=== PATIENT | female | born 1970 | race Hispanic/Latino ===

== ENCOUNTER 2022-01-10 22:37 | Emergency (ER) | payer OTHER ==
[~2022-01-10] VITALS: Ht 165.1 cm; Wt 102.1 kg
[~2022-01-10 22:37] MED LIST: INSULIN HUMULIN R 100 UNIT/ML 3ML SQ ONE
[2022-01-10 23:09] LABS: BASOPHILS % (AUTO) 0.7 % (0.0-5.0); EOSINOPHILS % (AUTO) 1.5 % (0.0-8.0); HEMATOCRIT 44.5 % (36-48); LYMPHOCYTES % (AUTO) 27.4 % (21.0-51.0); MEAN CORPUSCULAR HEMOGLOBIN 29.8 pg (27.0-33.0); MEAN CORPUSCULAR HGB CONC 35.1 g/dL (32.0-36.0); MEAN CORPUSCULAR VOLUME 85.1 fL (79-99); MONOCYTES % (AUTO) 5.6 % (3.0-13.0); NEUTROPHILS % (AUTO) 64.4 % (40.0-77.0); PLATELET COUNT (AUTO) 247 K/uL (130-400); RED BLOOD CELL COUNT(AUTO) 5.23 MIL/uL (4.00-5.50); RED CELL DISTRIBUTION WIDTH 11.9 % (11.0-15.5); WHITE BLOOD COUNT (AUTO) 9.3 K/uL (4.8-10.8)
[2022-01-10 23:25] LABS: ALBUMIN 3.5 g/dL (3.5-5.0); BILIRUBIN,TOTAL 0.4 mg/dL (0.2-1.0); CREATININE 0.9 mg/dL (0.5-1.5); POTASSIUM 4.4 mmol/L (3.5-5.1); TOTAL PROTEIN, SERUM 7.5 g/dL (6.0-8.3)
[2022-01-10] MEDS ORDERED: 0.9%NACL 1000ML 1,000 ML IV ONE ×2 (23:30)
[2022-01-11] MEDS ORDERED: INSULIN HUMULIN R 100 UNIT/ML 3ML IV ONE (00:30)
[2022-01-11 00:37] VITALS: BP 131/81
[2022-01-11] MEDS ORDERED: POLY17PO4 PO (00:37)
[2022-01-11] MEDS ORDERED: INSULIN HUMULIN R 100 UNIT/ML 3ML SQ SCH (07:30)
== END 2022-01-11 00:50 | disposition home or self-care (01) ==
LOC: EDH 22:37
DX: K56.41 Fecal impaction (principal); E11.9 Type 2 diabetes mellitus without complications; Z90.89 Acquired absence of other organs; Z98.890 Other specified postprocedural states
CPT/HCPCS: 36415; 80053; 82948 ×2; 85025; 96361; 96374; 99283; J1815; J7030

== ENCOUNTER 2023-04-19 19:17 | Emergency (ER) | payer OTHER ==
[~2023-04-19] VITALS: Ht 160 cm; Wt 94.3 kg
[~2023-04-19 19:17] MED LIST changes: -INSULIN HUMULIN R 100 UNIT/ML 3ML SQ ONE; +POLY17PO4 PO
[2023-04-19] MEDS ORDERED: IBUP-2070 PO (23:12)
[2023-04-19 23:17] VITALS: BP 138/74; PULSE 84; RESP 18; O2SAT 99
[2023-04-19] MEDS ORDERED: HYDROCODONE/ACETAMINOPHEN 5/325 MG TAB PO ONE (23:30)
== END 2023-04-19 23:21 | disposition home or self-care (01) ==
LOC: EDH 19:17
DX: S92.511A Displaced fracture of proximal phalanx of right lesser toe(s), initial encounter for closed fracture (principal); E11.9 Type 2 diabetes mellitus without complications; W22.8XXA Striking against or struck by other objects, initial encounter; Y93.01 Activity, walking, marching and hiking; Y92.89 Other specified places as the place of occurrence of the external cause; Y99.8 Other external cause status
CPT/HCPCS: 73660

== ENCOUNTER 2023-10-23 10:27 | Emergency (ER) | payer OTHER ==
[~2023-10-23] VITALS: Ht 157.5 cm; Wt 99.8 kg
[~2023-10-23 10:27] MED LIST changes: +CEPH500B PO; +CLOT15CR23 TP; +IBUP-2070 PO
[2023-10-23 10:28] VITALS: BP 150/95; PULSE 88; RESP 18
[2023-10-23 12:06] LABS: CREATININE 0.6 mg/dL (0.5-1.0); POTASSIUM 3.8 mmol/L (3.5-5.1)
[2023-10-23] MEDS ORDERED: IOHEXOL-350 75 ML VIAL IV ONE (12:20)
[2023-10-23] MEDS: LACTATED RINGERS 1000ML 1,000 ML IV ONE (12:55)
[2023-10-23] MEDS: ONDANSETRON 4MG INJ IVP ONE (12:55)
[2023-10-23] MEDS: METOCLOPRAMIDE 10 MG/2 ML VIAL IVP ONE (14:18)
[2023-10-23] MEDS: MECLIZINE HCL 25 MG TABLET PO ONE (14:47)
[2023-10-23 14:57] LABS: ADD UA MICROSCOPIC YES; APPEARANCE,URINE CLEAR (CLEAR); BILIRUBIN,URINE NEGATIVE (NEGATIVE); COLOR,URINE COLORLESS (YELLOW); GLUCOSE, URINE (UA) TRACE mg/dL (NEGATIVE); KETONES,URINE NEGATIVE (NEGATIVE); LEUKOCYTE ESTERASE ,URINE 25 Leu/uL (NEGATIVE); NITRATE,URINE NEGATIVE (NEGATIVE); OCCULT BLOOD,URINE NEGATIVE (NEGATIVE); PH,URINE 7.5 (5.0-8.0); PROTEIN,URINE NEGATIVE (NEGATIVE); UROBILINOGEN,URINE 0.2 mg/dL (0.2-1.0)
[2023-10-23 15:08] LABS: SQUAMOUS EPITHELIAL CELL,UR RARE /HPF (0-2); YEAST,URINE BUDDING RARE /HPF (None Seen)
[2023-10-23] MEDS ORDERED: METO5 PO (15:41)
== END 2023-10-23 15:55 | disposition home or self-care (01) ==
LOC: EDH 10:27
DX: R11.10 Vomiting, unspecified (principal); L03.311 Cellulitis of abdominal wall; R42 Dizziness and giddiness; E11.9 Type 2 diabetes mellitus without complications; Z90.49 Acquired absence of other specified parts of digestive tract; Z90.710 Acquired absence of both cervix and uterus
CPT/HCPCS: 99285; 80048; 80053; 85025; 82948; 83605 ×2; 82010; 81001; 36415 ×2; 70450; 74177; 96374 ×2; 99283; 96361 ×2; 96375; J7120; J7030; J0696; J2405; J2765; Q9967

== ENCOUNTER 2024-07-02 16:52 | Emergency (ER) | payer BC, OTHER ==
[~2024-07-02] VITALS: Ht 157.5 cm; Wt 87.1 kg
[~2024-07-02 16:52] MED LIST changes: +METO5 PO; +NAPR-1023 PO
--- NOTE | 2024-07-02 16:57 | ERN ---
ED Note History of Present Illness Stated Complaint: CP Chief Complaint: Chest Pain Time Seen by MD: 16:53 Dictation: PATIENT IS A 54-YEAR-OLD FEMALE HERE WITH COMPLAINTS OF LEFT ANTERIOR CHEST PAIN AND LEFT ARM PAIN ONSET WAS YESTERDAY. NO FEVER NO CHILLS NO NAUSEA VOMITING. STATES SHE DOES NOT HAVE A HISTORY OF CAD OR STENTS OR AIRPLANE PATROL PILOT. STATES SHE DOES HAVE HISTORY OF DIABETES HYPERTENSION, DOES NOT CHECK HER BLOOD SUGAR. WENT AND SAW HER PRIMARY CARE DOCTOR TODAY WHO WITHOUT ANY BENEFIT OF LABS OR X- RAYS, REFERRED HER TO THE EMERGENCY ROOM. SHE STATES THE PAIN COMES AND GOES, NO PRESSURE Allergies: Coded Allergies: No Known Drug Allergies (Unverified Allergy, Unknown, 01/10/22) Home Meds Active Scripts Ibuprofen (Ibuprofen 800 mg Tab) 800 Mg Tab, 800 MG PO Q8H PRN for fever or pain, #30 TAB 0 Refills Prov:AYANA GARCIA NP 07/02/24 Naproxen (Naproxen) 500 Mg Tablet, 500 MG PO BID PRN for PAIN, #30 TAB Prov:JAIRO HOFF 12/22/23 Metoclopramide HCl (Reglan) 5 Mg Tab, 5 MG PO Q6HPRN PRN for NAUSEA/VOMITING, #8 TAB Prov:SAUNDRA COTE MD 10/23/23 Clotrimazole (Clotrimazole) 1 % Cream..g., 1 IN TP BID for 7 Days, #15 G 0 Refills Prov:JERZY CASTRO MD 10/23/23 Cephalexin Monohydrate (Keflex) 500 Mg Cap, 500 MG PO TID, #30 CAP 0 Refills Prov:JERZY CASTRO MD 10/23/23 Ibuprofen (Ibuprofen) 600 Mg Tablet, 600 MG PO Q6H PRN for PAIN, #20 TAB 0 Refills Prov:TAMIKO PUENTES 04/19/23 Polyethylene Glycol 3350 (Miralax) 17 Gm Powd.pack, 17 GM PO DAILY, #30 DAYS Prov:BINDU BANDA MD 01/11/22 Past Medical History Past Medical History: Diabetes-Type II, Hypothyroid Surgical History: Appendectomy, Hysterectomy Social History: Negative, Lives with family History: Not Applicable RN Note Reviewed/Agreed w/PFSH: Yes Review of System Dictation CONSTITUTIONAL: NEGATIVE EXCEPT FOR HPI HEAD/FACE: NEGATIVE EXCEPT FOR HPI EENT: NEGATIVE EXCEPT FOR HPI RESPIRATORY: NEGATIVE EXCEPT FOR HPI LEFT CHEST PAIN GASTROINTESTINAL/ABDOMINAL: NEGATIVE EXCEPT FOR HPI GENITOURINARY: NEGATIVE EXCEPT FOR HPI MUSCULOSKELETAL: NEGATIVE EXCEPT FOR HPI INTEGUMENTARY: NEGATIVE EXCEPT FOR HPI NEUROLOGICAL/PSYCH: NEGATIVE EXCEPT FOR HPI HEMATOLOGIC/LYMPHATIC: NEGATIVE EXCEPT FOR HPI ALL SYSTEMS NEGATIVE, EXCEPT NOTED ABOVE. 13 POINT REVIEW OF SYSTEMS ASSESSED AND ALL NEGATIVE EXCEPT FOR ABOVE. Initial Vital Sign VS Vital Signs Date Time Temp Pulse Resp B/P (MAP) Pulse Ox O2 Delivery O2 Flow Rate FiO2 07/02/24 16:53 98.4 83 16 130/76 99 Room Air 0 07/02/24 21:25 21 Physical Exam Dictation VITAL SIGNS REVIEWED GENERAL APPEARANCE: ALERT, ORIENTED X 3, NO ACUTE DISTRESS, WELL DEVELOPED, NOURISHED. OBESE HEAD AND FACE: NON-TRAUMATIC. EYES: PERRL, PINK CONJUNCTIVAS, EYELID NO TRAUMA, ANTERIOR CHAMBER WITH ARCUS SENILIS. EARS: PINNAS INTACT AND NO SIGNS OF TRAUMA OR ERYTHEMA EAR CANALS CLEAR AND NO DISCHARGE TM NO ERYTHEMA NOSE: NO DISCHARGE, NO BLEEDING. OROPHARYNX: MOUTH NORMAL, TONGUE PINK, PHARYNX CLEAR,NO ERYTHEMA, TONSILS NO EXUDATES, NO ABSCESSES NOTED, MUCOUS MEMBRANE MOIST NECK: SUPPLE, NON-TENDER, NO THYROMEGALY, NO MASSES, NO JVD, NO BRUITS BREAST:DEFERRED CHEST:NO TENDERNESS, NO CREPITUS, NO PARADOXICAL MOVEMENT, NO RETRACTIONS LUNGS:CLEAR, WELL-VENTILATED, SYMMETRIC, NO RALES, NO WHEEZING, NO RHONCHI, NO STRIDOR, GOOD BREATH SOUNDS BILATERALLY HEART: REGULAR RATE, REGULAR RHYTHM, NO MURMUR, NO GALLOPS VASCULAR: NO PERIPHERAL EDEMA, ABDOMEN: SOFT, POSITIVE BOWEL SOUNDS, NONDISTENDED, NO GUARDING, NONTENDER, NO REBOUND, NO MASSES NO HEPATOMEGALY, NO SPLENOMEGALY, NO ALVAREZ'S SIGN, NO HERNIAS. RECTAL: DEFERRED GENITAL: DEFERRED NEUROLOGICAL: NORMAL SPEECH, MOTOR FUNCTION INTACT, SENSORY FUNCTION INTACT MUSCULOSKELETAL: NECK NONTENDER, FULL RANGE OF MOTION, BACK NONTENDER, FULL RANGE OF MOTION, EXTREMITIES: NONTENDER, FULL RANGE OF MOTION SKIN: COLOR PINK, DRY, NO TURGOR, NO RASH, NO LACERATIONS, NO ABRASIONS, NO CONTUSIONS. LYMPHATIC: DEFERRED Results (Laboratory/Radiology) Laboratory/Radiology Laboratory Tests Test 07/02/24 17:51 White Blood Count 8.6 K/uL (4.8-10.8) Red Blood Count 5.36 MIL/uL (4.00-5.50) Hemoglobin 16.0 g/dL (12.0-16.0) Hematocrit 46.6 % (36-48) Mean Corpuscular Volume 86.9 fL (79-99) Mean Corpuscular Hemoglobin 29.9 pg (27.0-33.0) Mean Corpuscular Hemoglobin Concent 34.3 g/dL (32.0-36.0) Red Cell Distribution Width 12.6 % (11.0-15.5) Platelet Count 248 K/uL (130-400) Mean Platelet Volume 11.3 fL (7.5-10.5) H Immature Granulocyte % (Auto) 0.5 % (0-1) Neutrophils (%) (Auto) 60.9 % (40.0-77.0) Lymphocytes (%) (Auto) 28.3 % (21.0-51.0) Monocytes (%) (Auto) 7.2 % (3.0-13.0) Eosinophils (%) (Auto) 2.3 % (0.0-8.0) Basophils (%) (Auto) 0.8 % (0.0-5.0) Neutrophils # (Auto) 5.3 K/uL (1.8-7.7) Lymphocytes # (Auto) 2.4 K/uL (1.0-4.8) Monocytes # (Auto) 0.6 K/uL (0.1-1.0) Eosinophils # (Auto) 0.20 K/uL (0.00-0.70) Basophils # (Auto) 0.07 K/uL (0.00-0.20) Absolute Immature Granulocyte (auto 0.04 K/uL (0-1) Nucleated Red Blood Cells 0.0 % (0.0-0.19) Sodium Level 141 mmol/L (136-145) Potassium Level 3.9 mmol/L (3.5-5.1) Chloride Level 103 mmol/L (101-111) Carbon Dioxide Level 33 mmol/L (21-32) H Blood Urea Nitrogen 11 mg/dL (7-18) Creatinine 0.7 mg/dL (0.5-1.0) Glomerular Filtration Rate Calc 103 mL/min (>90) Random Glucose 202 mg/dL (70-105) H Total Calcium 9.7 mg/dL (8.5-10.1) Magnesium Level 2.00 mg/dL (1.80-2.40) Troponin I High Sensitivity < 4 ng/L (4-50) L HEST 1VW HISTORY: Chest pain COMPARISON: None FINDINGS: A frontal projection of the chest was obtained. No acute pulmonary infiltrates is seen. The heart is normal in size. Prominent interstitial markings are seen. No evidence of aortic calcification is seen. IMPRESSION: 1. No acute pulmonary infiltrate is seen. Labs Reviewed?: Yes EKG Comment: EKG IS SINUS RHYTHM/HEART RATE 8 /NO ECTOPY /NONSPECIFIC T-WAVE CHANGE IN TEAR LATERAL LEADS ED Course ED Course Orders Procedure Category Date Status Time Cbc With Differential LAB 07/02/24 Complete 16:53 Chest 1vw RAD 07/02/24 Resulted 16:53 12 Lead Ekg Tracing- EKG 07/02/24 Resulted Technical 16:53 Magnesium LAB 07/02/24 Complete 16:53 Troponin I High LAB 07/02/24 Complete Sensitivity 16:53 Aspirin 325mg Tab PHA 07/02/24 Complete (Aspirin 325mg Tab) 17:00 Basic Metabolic Panel LAB 07/02/24 Complete 16:53 Aspirin 325mg Tab PHA 07/02/24 Complete (Aspirin 325mg Tab) 21:21 Current Medications Medications (Trade) Dose Ordered Sig/Samuel Route PRN Reason Start Time Stop Time Status Last Admin Dose Admin Aspirin (Aspirin 325mg Tab) 325 mg ONCE ONCE PO 07/02/24 17:00 07/02/24 17:01 DC 07/02/24 17:00 Aspirin (Aspirin 325mg Tab) 325 mg STK-MED ONCE .ROUTE 07/02/24 21:21 07/02/24 21:21 DC Vital Signs Date Time Temp Pulse Resp B/P (MAP) Pulse Ox O2 Delivery O2 Flow Rate FiO2 07/02/24 21:25 98.1 60 18 118/80 98 Room Air* 0 21 07/02/24 16:53 98.4 83 16 130/76 99 Room Air 0 1915, CARDIAC WORKUP NEGATIVE, BLOOD SUGAR 202. PATIENT WILL BE DISCHARGED HOME WITH ATYPICAL CHEST PAIN TOLD TO SEE HER PRIMARY CARE DOCTOR. HEART Score Response (Comments) Value EKG: Repolarization changes 1 Age: 45-65yrs (+1) 1 Risk Factors: 1-2 risk factors (+1) 1 Initial Troponin: Normal limit (0) 0 Total 3 Medical Decision Making MDM MDM: DIFFERENTIAL DIAGNOSIS: ACS/AMI/ELECTROLYTE IMBALANCE/DEHYDRATI ON/PNEUMONIA/BRONCHITIS RATIONALE: TESTS CONSIDERED AND ORDERED SECONDARY TO SHARED DECISION MAKING INCLUDE: EKG/LABS/RADIOLOGY PREVIOUS OUTSIDE RECORDS REVIEWED: OLD ER VISITS. REVIEWED RISK OF COMPLICATION AND/OR MORBIDITY OR MORTALITY OF PATIENT MANAGEMENT: NONE MEDICATIONS-PER MEDICATION RECONCILIATION SEE NURSE'S NOTES NEED FOR HOSPITALIZATION: PATIENT DOES NOT MEET CRITERIA FOR HOSPITALIZATION. NONE NEED FOR EMERGENCY MAJOR/MINOR SURGERY: NO THERE ARE NO SOCIAL CONCERNS WITH THIS PATIENT. PRESCRIPTION DRUG MANAGEMENT IBUPROFEN PRESCRIPTIONS WILL INCLUDE SYMPTOMATIC CARE PATIENT'S PRIOR EXTERNAL MEDICAL RECORDS FROM OTHER ER VISITS WERE REVIEWED BY ME INDICATED. PRIOR TESTING AND RESULTS FROM PREVIOUS VISITS WERE REVIEWED. PRIOR TESTS WERE TAKEN INTO ACCOUNT WITH MEDICAL DECISION MAKING AND RESOURCE UTILIZATION, INDEPENDENT HISTORIAN/HISTORIANS WERE USED TO OBTAIN COMPLETE MEDICAL HISTORY. I INDEPENDENTLY INTERPRETED THE TEST THAT WERE PERFORMED, RESULTS WERE REVIEWED BY ME AND CONSIDERED FINDINGS ON RADIOLOGY IF ORDERED. MEDICAL MANAGEMENT AND EXAMINATION INTERPRETATION DISCUSSIONS WERE HAD BY ME WITH OTHER QUALIFIED HEALTHCARE PROFESSIONALS INDICATED FOR THE PATIENT'S CARE. DX & DISP Disposition: Discharge Departure Impression: Primary Impression: Atypical chest pain Additional Impression: Uncontrolled diabetes mellitus Condition: Stable Scripts Ibuprofen (Ibuprofen 800 mg Tab) 800 Mg Tab 800 MG PO Q8H PRN for fever or pain, #30 TAB 0 Refills Prov: AYANA GARCIA JOURNALISM PROFESSOR 07/02/24 Additional Instructions: FOLLOW-UP WITH PRIMARY CARE PROVIDER IN 1 TO 2 DAYS. TAKE MEDICATIONS DIRECTED HERE IN THE EMERGENCY ROOM. OKAY TO CONTINUE HOME MEDICATIONS UNLESS OTHERWISE DISCUSSED DURING YOUR VISIT IN THE EMERGENCY ROOM TODAY. RETURN TO YOUR NEAREST EMERGENCY ROOM IF SYMPTOMS WORSEN OR IF THERE IS NO IMPROVEMENT. CALL 911 IF YOU NEED IMMEDIATE ASSISTANCE. TAKE TYLENOL OR MOTRIN [id number] NEEDED AND IF NO CONTRAINDICATIONS ARE PRESENT. INCREASE ORAL HYDRATION. A WOUND CULTURE OR URINE CULTURE WAS ORDERED HERE IN THE EMERGENCY ROOM DEPARTMENT PLEASE FOLLOW-UP WITH PRIMARY CARE PROVIDER AND ADVISE THEM TO GET REPEAT PORTS FROM OUR FACILITY. IF YOU HAD ANY JOSEFA WRAP/SPLINTS THAT WERE APPLIED HERE, PLEASE DO NOT REMOVE THEM UNTIL YOU SEE YOUR PRIMARY CARE OR SPECIALTY. TAKE YOUR DIABETIC MEDICATIONS DIRECTED, INCREASE YOUR WATER INTAKE. SEE YOUR PRIMARY CARE DOCTOR FOR FOLLOW UP IN 1-2 DAYS. Referrals: NONE (PCP) Time of Disposition: 19:18 I have reviewed the case, and I agree with, Diagnosis and Plan ATTESTATION BY PHYSICIAN I PERFORMED THE SUBSTANTIVE PORTION OF THE VISIT. I HAVE REVIEWED AND PERSONALLY MADE AND APPROVED THE MANAGEMENT PLAN THAT IS DOCUMENTED IN THE NOTE BY MYSELF FOR THE A PP. I ACKNOWLEDGED FOR RESPONSIBILITY FOR THE PATIENT'S MANAGEMENT PLAN. AYANA GARCIA NP Jul 02, 2024 16:57 JORDAN BECKER MD Jul 04, 2024 07:36
[2024-07-02] MEDS: ASPIRIN 325MG TAB PO ONE (17:00)
--- NOTE | 2024-07-02 17:09 | EKG ---
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
--- NOTE | 2024-07-02 17:48 | HMCIMG ---
CHEST 1VW HISTORY: Chest pain COMPARISON: None FINDINGS: A frontal projection of the chest was obtained. No acute pulmonary infiltrates is seen. The heart is normal in size. Prominent interstitial markings are seen. No evidence of aortic calcification is seen. IMPRESSION: 1. No acute pulmonary infiltrate is seen.
[2024-07-02 18:06] LABS: BASOPHILS # (AUTO) 0.07 K/uL (0.00-0.20); BASOPHILS % (AUTO) 0.8 % (0.0-5.0); EOSINOPHILS % (AUTO) 2.3 % (0.0-8.0); HEMATOCRIT 46.6 % (36-48); IMMATURE GRANULOCYTE ABSOLUTE 0.04 K/uL (0-1); LYMPHOCYTES # (AUTO) 2.4 K/uL (1.0-4.8); LYMPHOCYTES % (AUTO) 28.3 % (21.0-51.0); MEAN CORPUSCULAR HEMOGLOBIN 29.9 pg (27.0-33.0); MEAN CORPUSCULAR HGB CONC 34.3 g/dL (32.0-36.0); MEAN CORPUSCULAR VOLUME 86.9 fL (79-99); MONOCYTES # (AUTO) 0.6 K/uL (0.1-1.0); MONOCYTES % (AUTO) 7.2 % (3.0-13.0); NEUTROPHILS # (AUTO) 5.3 K/uL (1.8-7.7); NEUTROPHILS % (AUTO) 60.9 % (40.0-77.0); PLATELET COUNT (AUTO) 248 K/uL (130-400); RED BLOOD CELL COUNT(AUTO) 5.36 MIL/uL (4.00-5.50); RED CELL DISTRIBUTION WIDTH 12.6 % (11.0-15.5); WHITE BLOOD COUNT (AUTO) 8.6 K/uL (4.8-10.8)
[2024-07-02 18:21] LABS: CREATININE 0.7 mg/dL (0.5-1.0); POTASSIUM 3.9 mmol/L (3.5-5.1)
[2024-07-02] MEDS ORDERED: IBUP-2077 PO (19:19)
[2024-07-02] MEDS ORDERED: ASPIRIN 325MG TAB ONE (21:21)
[2024-07-02 21:25] VITALS: BP 118/80; PULSE 60; RESP 18; TEMP 98; O2SAT 98
== END 2024-07-02 21:29 | disposition home or self-care (01) ==
LOC: EDH 16:52
DX: R07.89 Other chest pain (principal); E11.65 Type 2 diabetes mellitus with hyperglycemia; E03.9 Hypothyroidism, unspecified; Z90.49 Acquired absence of other specified parts of digestive tract; Z90.710 Acquired absence of both cervix and uterus
CPT/HCPCS: 36415; 71045; 80048; 83735; 84484; 85025; 93005; 99284

== ENCOUNTER 2024-12-30 13:16 | Emergency (ER) | payer BC ==
[~2024-12-30] VITALS: Ht 157.5 cm; Wt 88.5 kg
[~2024-12-30 13:16] MED LIST changes: +IBUP-2077 PO; -NAPR-1023 PO; +NAPR-1194 PO
--- NOTE | 2024-12-30 13:29 | ERN ---
ED Note History of Present Illness Stated Complaint: CHEST PAIN Chief Complaint: Chest Pain Time Seen by MD: 13:18 Dictation: PATIENT IS A 54-YEAR-OLD FEMALE HERE WITH COMPLAINTS OF LEFT CHEST PAIN THAT RADIATES TO THE LEFT ARM INTERMITTENTLY FOR THE LAST TWO WEEKS. NO JAW PAIN NO BACK PAIN NO NAUSEA VOMITING. STATES SHE SAW HER DOCTOR, DR. LYNNE SHEIKH LAST WEEK WHO DID AN EKG AND TOLD HER THAT IT WAS NOT CARDIAC. SHE HAS A AN APPOINTMENT PENDING WITH A UNKNOWN [facility] PL[facility] AND FEATHER DRILLER'[facility] AND CAN NOT RECALL THE NAME IN THE NEXT SEVERAL WEEKS FOR A STRESS TEST. SHE IS NOT ON ANY BLOOD THINNERS NO NITROGLYCERIN. TAKE ASPIRIN. Allergies: Coded Allergies: No Known Drug Allergies (Unverified Allergy, Unknown, 01/10/22) Home Meds Active Scripts Ibuprofen (Ibuprofen 800 mg Tab) 800 Mg Tab, 800 MG PO Q8H PRN for fever or pain, #30 TAB 0 Refills Prov:AYANA GARCIA LINE ASSEMBLY UTILITY WORKER 07/02/24 Naproxen (Naproxen) 500 Mg Tablet, 500 MG PO BID PRN for PAIN, #30 TAB Prov:JAIRO HOFF 12/22/23 Metoclopramide HCl (Reglan) 5 Mg Tab, 5 MG PO Q6HPRN PRN for NAUSEA/VOMITING, #8 TAB Prov:SAUNDRA COTE MD 10/23/23 Clotrimazole (Clotrimazole) 1 % Cream..g., 1 IN TP BID for 7 Days, #15 G 0 Refills Prov:JERZY CASTRO MD 10/23/23 Cephalexin Monohydrate (Keflex) 500 Mg Cap, 500 MG PO TID, #30 CAP 0 Refills Prov:JERZY CASTRO MD 10/23/23 Ibuprofen (Ibuprofen) 600 Mg Tablet, 600 MG PO Q6H PRN for PAIN, #20 TAB 0 Refills Prov:TAMIKO PUENTES 04/19/23 Polyethylene Glycol 3350 (Miralax) 17 Gm Powd.pack, 17 GM PO DAILY, #30 DAYS Prov:BINDU BANDA MD 01/11/22 Past Medical History Past Medical History: Asthma, Diabetes-Type II, High Cholesterol, Hypothyroid Surgical History: Appendectomy, Hysterectomy Social History: Negative, Lives with family History: Not Applicable RN Note Reviewed/Agreed w/PFSH: Yes Review of System Dictation CONSTITUTIONAL: NEGATIVE EXCEPT FOR HPI HEAD/FACE: NEGATIVE EXCEPT FOR HPI EENT: NEGATIVE EXCEPT FOR HPI RESPIRATORY: NEGATIVE EXCEPT FOR HPI CHEST PAIN GASTROINTESTINAL/ABDOMINAL: NEGATIVE EXCEPT FOR HPI GENITOURINARY: NEGATIVE EXCEPT FOR HPI MUSCULOSKELETAL: NEGATIVE EXCEPT FOR HPI LEFT ARM NUMBNESS [place] INTEGUMENTARY: NEGATIVE EXCEPT FOR HPI NEUROLOGICAL/PSYCH: NEGATIVE EXCEPT FOR HPI HEMATOLOGIC/LYMPHATIC: NEGATIVE EXCEPT FOR HPI ALL SYSTEMS NEGATIVE, EXCEPT NOTED ABOVE. 13 POINT REVIEW OF SYSTEMS ASSESSED AND ALL NEGATIVE EXCEPT FOR ABOVE. Initial Vital Sign VS Vital Signs Date Time Temp Pulse Resp B/P (MAP) Pulse Ox O2 Delivery O2 Flow Rate FiO2 12/30/24 13:17 97.9 80 18 141/86 97 Room Air 0 Physical Exam Dictation VITAL SIGNS REVIEWED GENERAL APPEARANCE: ALERT, ORIENTED X 3, NO ACUTE DISTRESS, WELL DEVELOPED, NOURISHED. OBESE HEAD AND FACE: NON-TRAUMATIC. EYES: PERRL, PINK CONJUNCTIVAS, EYELID NO TRAUMA, ANTERIOR CHAMBER WITH ARCUS SENILIS. EARS: PINNAS INTACT AND NO SIGNS OF TRAUMA OR ERYTHEMA EAR CANALS CLEAR AND NO DISCHARGE TM NO ERYTHEMA NOSE: NO DISCHARGE, NO BLEEDING. OROPHARYNX: MOUTH NORMAL, TONGUE PINK, PHARYNX CLEAR,NO ERYTHEMA, TONSILS NO EXUDATES, NO ABSCESSES NOTED, MUCOUS MEMBRANE MOIST NECK: SUPPLE, NON-TENDER, NO THYROMEGALY, NO MASSES, NO JVD, NO BRUITS BREAST:DEFERRED CHEST:NO TENDERNESS, NO CREPITUS, NO PARADOXICAL MOVEMENT, NO RETRACTIONS LUNGS:CLEAR, WELL-VENTILATED, SYMMETRIC, NO RALES, NO WHEEZING, NO RHONCHI, NO STRIDOR, GOOD BREATH SOUNDS BILATERALLY HEART: REGULAR RATE, REGULAR RHYTHM, NO MURMUR, NO GALLOPS VASCULAR: NO PERIPHERAL EDEMA, ABDOMEN: SOFT, POSITIVE BOWEL SOUNDS, NONDISTENDED, NO GUARDING, NONTENDER, NO REBOUND, NO MASSES NO HEPATOMEGALY, NO SPLENOMEGALY, NO ALVAREZ'S SIGN, NO HERNIAS. RECTAL: DEFERRED GENITAL: DEFERRED NEUROLOGICAL: NORMAL SPEECH, MOTOR FUNCTION INTACT, SENSORY FUNCTION INTACT MUSCULOSKELETAL: NECK NONTENDER, FULL RANGE OF MOTION, BACK NONTENDER, FULL RANGE OF MOTION, EXTREMITIES: NONTENDER, FULL RANGE OF MOTION SKIN: COLOR PINK, DRY, NO TURGOR, NO RASH, NO LACERATIONS, NO ABRASIONS, NO CO NTUSIONS. LYMPHATIC: DEFERRED Results (Laboratory/Radiology) Laboratory/Radiology Laboratory Tests Test 12/30/24 13:36 12/30/24 14:24 White Blood Count 10.5 K/uL (4.8-10.8) Red Blood Count 5.35 MIL/uL (4.00-5.50) Hemoglobin 16.0 g/dL (12.0-16.0) Hematocrit 46.0 % (36-48) Mean Corpuscular Volume 86.0 fL (79-99) Mean Corpuscular Hemoglobin 29.9 pg (27.0-33.0) Mean Corpuscular Hemoglobin Concent 34.8 g/dL (32.0-36.0) Red Cell Distribution Width 12.4 % (11.0-15.5) Platelet Count 281 K/uL (130-400) Mean Platelet Volume 10.8 fL (7.5-10.5) H Immature Granulocyte % (Auto) 0.4 % (0-1) Neutrophils (%) (Auto) 63.5 % (40.0-77.0) Lymphocytes (%) (Auto) 28.1 % (21.0-51.0) Monocytes (%) (Auto) 4.7 % (3.0-13.0) Eosinophils (%) (Auto) 2.4 % (0.0-8.0) Basophils (%) (Auto) 0.9 % (0.0-5.0) Neutrophils # (Auto) 6.7 K/uL (1.8-7.7) Lymphocytes # (Auto) 3.0 K/uL (1.0-4.8) Monocytes # (Auto) 0.5 K/uL (0.1-1.0) Eosinophils # (Auto) 0.25 K/uL (0.00-0.70) Basophils # (Auto) 0.09 K/uL (0.00-0.20) Absolute Immature Granulocyte (auto 0.04 K/uL (0-1) Nucleated Red Blood Cells 0.0 % (0.0-0.19) Sodium Level 140 mmol/L (136-145) Potassium Level 4.0 mmol/L (3.5-5.1) Chloride Level 102 mmol/L (101-111) Carbon Dioxide Level 31 mmol/L (21-32) Blood Urea Nitrogen 10 mg/dL (7-18) Creatinine 0.6 mg/dL (0.5-1.0) Glomerular Filtration Rate Calc 107 mL/min (>90) Random Glucose 160 mg/dL (70-105) H Total Calcium 8.7 mg/dL (8.5-10.1) Magnesium Level 1.90 mg/dL (1.80-2.40) Troponin I High Sensitivity < 4 ng/L (4-50) L 4 ng/L (4-50) Labs Reviewed?: Yes EKG Comment: EKG SINUS RHYTHM/HEART RATE 85/AXIS NORMAL/NONSPECIFIC CHANGES LEADS V2 V3 SECOND EKG HE NORMAL SINUS RHYTHM/HEART RATE 79/AXIS NORMAL. HEART SCORE IS THREE AND NO CHANGE FROM INITIAL EKG. ED Course ED Course Orders Procedure Category Date Status Time Cbc With Differential LAB 12/30/24 Complete 13:26 Chest 1vw RAD 12/30/24 Resulted 13:26 12 Lead Ekg Tracing- EKG 12/30/24 Resulted Technical 13:26 Magnesium LAB 12/30/24 Complete 13:26 Troponin I High LAB 12/30/24 Complete Sensitivity 13:26 Basic Metabolic Panel LAB 12/30/24 Complete 13:26 Aspirin 325mg Tab PHA 12/30/24 Complete (Aspirin 325mg Tab) 13:30 12 Lead Ekg Tracing- EKG 12/30/24 Resulted Technical 14:09 Troponin I High LAB 12/30/24 Complete Sensitivity 14:09 Current Medications Medications (Trade) Dose Ordered Sig/Samuel Route PRN Reason Start Time Stop Time Status Last Admin Dose Admin Aspirin (Aspirin 325mg Tab) 325 mg ONCE ONCE PO 12/30/24 13:30 12/30/24 13:31 DC 12/30/24 15:00 Vital Signs Date Time Temp Pulse Resp B/P (MAP) Pulse Ox O2 Delivery O2 Flow Rate FiO2 12/30/24 13:17 97.9 80 18 141/86 97 Room Air 0 1540/PATIENT DISCHARGED HOME WITH DIAGNOSIS OF ATYPICAL CHEST PAIN AND HYPERG LYCEMIA UNCONTROLLED DIABETES TOLD TO SEE HER PRIMARY CARE DOCTOR ON TUESDAY OR TUESDAY HEART Score Response (Comments) Value History: Low suspicion (0) 0 EKG: Normal 0 Age: 45-65yrs (+1) 1 Risk Factors: 1-2 risk factors (+1) 1 Initial Troponin: Normal limit (0) 0 Total 2 Medical Decision Making MDM MDM: DIFFERENTIAL DIAGNOSIS: ACS/AMI/ANXIETY/PNEUMONIA/BRONCHITIS/ELECTROLYTE IMBALANCE/DEHYDRATION RATIONALE: TESTS CONSIDERED AND ORDERED SECONDARY TO SHARED DECISION MAKING INCLUDE: RADIOLOGY/LABS/ PREVIOUS OUTSIDE RECORDS REVIEWED: OLD ER VISITS. RISK OF COMPLICATION AND/OR MORBIDITY OR MORTALITY OF PATIENT MANAGEMENT: NONE MEDICATIONS-PER MEDICATION RECONCILIATION NEED FOR HOSPITALIZATION: PATIENT DOES NOT MEET CRITERIA FOR HOSPITALIZATION. EKG X2 NONE NEED FOR EMERGENCY MAJOR/MINOR SURGERY: NO THERE ARE NO SOCIAL CONCERNS WITH THIS PATIENT. PRESCRIPTION DRUG MANAGEMENT NONE PRESCRIPTIONS WILL INCLUDE SYMPTOMATIC CARE PATIENT'S PRIOR EXTERNAL MEDICAL RECORDS FROM OTHER ER VISITS WERE REVIEWED BY ME INDICATED. PRIOR TESTING AND RESULTS FROM PREVIOUS VISITS WERE REVIEWED. PRIOR TESTS WERE TAKEN INTO ACCOUNT WITH MEDICAL DECISION MAKING AND RESOURCE UTILIZATION, INDEPENDENT HISTORIAN/HISTORIANS WERE USED TO OBTAIN COMPLETE MEDICAL HISTORY. I INDEPENDENTLY INTERPRETED THE TEST THAT WERE PERFORMED, RESULTS WERE REVIEWED BY ME AND CONSIDERED FINDINGS ON RADIOLOGY IF ORDERED. MEDICAL MANAGEMENT AND EXAMINATION INTERPRETATION DISCUSSIONS WERE HAD BY ME WITH OTHER QUALIFIED HEALTHCARE PROFESSIONALS INDICATED FOR THE PATIENT'S CARE. DX & DISP Disposition: Discharge Departure Impression: Primary Impression: Atypical chest pain Additional Impressions: Uncontrolled diabetes mellitus, Anxiety Condition: Stable Additional Instructions: FOLLOW-UP WITH PRIMARY CARE PROVIDER IN 1 TO 2 DAYS. TAKE MEDICATIONS DIRECTED HERE IN THE EMERGENCY ROOM. OKAY TO CONTINUE HOME MEDICATIONS UNLESS OTHERWISE DISCUSSED DURING YOUR VISIT IN THE EMERGENCY ROOM TODAY. RETURN TO YOUR NEAREST EMERGENCY ROOM IF SYMPTOMS WORSEN OR IF THERE IS NO IMPROVEMENT. CALL 911 IF YOU NEED IMMEDIATE ASSISTANCE. TAKE TYLENOL OR MOTRIN [id number] NEEDED AND IF NO CONTRAINDICATIONS ARE PRESENT. INCREASE ORAL HYDRATION. A WOUND CULTURE OR URINE CULTURE WAS ORDERED HERE IN THE EMERGENCY ROOM DEPARTMENT PLEASE FOLLOW-UP WITH PRIMARY CARE PROVIDER AND ADVISE THEM TO GET REPEAT PORTS FROM OUR FACILITY. IF YOU HAD ANY JOSEFA WRAP/SPLINTS THAT WERE APPLIED HERE, PLEASE DO NOT REMOVE THEM UNTIL YOU SEE YOUR PRIMARY CARE OR SPECIALTY. DIET AND ACTIVITY TOLERATED, FOLLOW UP WITH YOUR PRIMARY CARE DOCTOR OR [facility] PLUG AND FEATHER DRILLER[facility] NEXT WEEK. Referrals: JOCELIN SHEIKH (PCP) Time of Disposition: 15:41 I have reviewed the case, and I agree with, Diagnosis and Plan AYANA GARCIA NP Dec 30, 2024 13:29
[2024-12-30 13:45] LABS: BASOPHILS # (AUTO) 0.09 K/uL (0.00-0.20); BASOPHILS % (AUTO) 0.9 % (0.0-5.0); EOSINOPHILS # (AUTO) 0.25 K/uL (0.00-0.70); EOSINOPHILS % (AUTO) 2.4 % (0.0-8.0); IMMATURE GRANULOCYTE ABSOLUTE 0.04 K/uL (0-1); LYMPHOCYTES % (AUTO) 28.1 % (21.0-51.0); MEAN CORPUSCULAR HEMOGLOBIN 29.9 pg (27.0-33.0); MEAN CORPUSCULAR HGB CONC 34.8 g/dL (32.0-36.0); MONOCYTES # (AUTO) 0.5 K/uL (0.1-1.0); MONOCYTES % (AUTO) 4.7 % (3.0-13.0); NEUTROPHILS # (AUTO) 6.7 K/uL (1.8-7.7); NEUTROPHILS % (AUTO) 63.5 % (40.0-77.0); PLATELET COUNT (AUTO) 281 K/uL (130-400); RED BLOOD CELL COUNT(AUTO) 5.35 MIL/uL (4.00-5.50); RED CELL DISTRIBUTION WIDTH 12.4 % (11.0-15.5); WHITE BLOOD COUNT (AUTO) 10.5 K/uL (4.8-10.8)
--- NOTE | 2024-12-30 13:48 | EKG ---
[facility] Test Date: 2024-12-30 Test Time: 13:22:36 Pat Name: DELORES PLASENCIA Department: ED Room: Gender: F Cardiac Exercise Physiologist: [id number] : 1970 Requested By: AYANA GARCIA Order Number: [id number] Reading MD: Leonides Hung Measurements Intervals [place] Rate: 85 P: 34 [place]: 110 QRS: 12 QRSD: 88 T: 0 QT: 341 QTc: 406 Interpretive Statements Sinus rhythm Probable anterior infarct, old Compared to ECG 07/02/2024 17:06:43 Myocardial infarct finding now present Electronically Signed On 12-30-2024 14:45:51 CDT by Leonides Hung Please click the below link to view image of tracing.
[2024-12-30 13:54] LABS: CREATININE 0.6 mg/dL (0.5-1.0); MAGNESIUM 1.9 mg/dL (1.80-2.40)
--- NOTE | 2024-12-30 14:36 | EKG ---
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
[2024-12-30] MEDS: ASPIRIN 325MG TAB PO ONE (15:00)
--- NOTE | 2024-12-30 15:19 | HMCIMG ---
CHEST 1VW HISTORY: Chest pain COMPARISON: 07/02/2024 FINDINGS: A frontal projection of the chest was obtained. No acute pulmonary infiltrates is seen. The heart is normal in size. Prominent interstitial markings are seen. Degenerative changes are seen. No evidence of aortic calcification is seen. IMPRESSION: 1. No acute pulmonary infiltrate is seen.
--- NOTE | 2024-12-30 16:30 | NUR ---
PT RECEIVED HER DISCHARGE DOCUMENTS. SHE AMBULATED TO DISCHARGE WITH A STEADY GAIT ACCOMPANIED BY A FAMILY MEMBER.
[2024-12-30 16:48] VITALS: BP 136/80; PULSE 70; RESP 16; TEMP 97.8; O2SAT 98
== END 2024-12-30 16:30 | disposition home or self-care (01) ==
LOC: EDH 13:16
DX: R07.89 Other chest pain (principal); E11.65 Type 2 diabetes mellitus with hyperglycemia; I21.9 Acute myocardial infarction, unspecified; F41.9 Anxiety disorder, unspecified; E03.9 Hypothyroidism, unspecified; E78.00 Pure hypercholesterolemia, unspecified; J45.909 Unspecified asthma, uncomplicated; Z90.49 Acquired absence of other specified parts of digestive tract; Z90.710 Acquired absence of both cervix and uterus
CPT/HCPCS: 36415; 71045; 80048; 83735; 84484; 85025; 93005; 99284

== ENCOUNTER 2025-03-22 20:32 | Emergency (ER) | payer BC ==
[~2025-03-22] VITALS: Ht 157.5 cm; Wt 88.0 kg
[~2025-03-22 20:32] MED LIST changes: +IBUP-1492 PO; -IBUP-2070 PO
--- NOTE | 2025-03-22 21:58 | HMCIMG ---
EXAM: CR right ankle, 3 View. CLINICAL HISTORY: sprain COMPARISON: None provided. FINDINGS: BONES: No acute fracture or aggressive appearing osseous lesion. Small plantar calcaneal spur, and small enthesophyte at the distal Achilles tendon insertion. JOINTS: The joint spaces appear within normal limits. No dislocation. No radiographic evidence of a joint effusion. SOFT TISSUES: The soft tissues are unremarkable. IMPRESSION: No acute osseous abnormality. /[place]
--- NOTE | 2025-03-22 21:58 | HMCIMG ---
EXAM: CR right foot, 3 View. CLINICAL HISTORY: sprain COMPARISON: None provided. FINDINGS: BONES: No acute fracture or aggressive appearing osseous lesion. JOINTS: The joint spaces appear within normal limits. No dislocation. SOFT TISSUES: The soft tissues are unremarkable. IMPRESSION: No acute osseous abnormality. /[place]
--- NOTE | 2025-03-22 22:58 | ERN ---
General Chief Complaint: Ankle Problem Stated Complaint: RT ANKLE Time Seen by MD: 20:43 Source: patient History of Present Illness Initial Comments 55-year-old female twisted her right ankle getting through a gate today the ankle immediately started swelling she comes in for evaluation. Allergies: Coded Allergies: No Known Drug Allergies (Unverified Allergy, Unknown, 01/10/22) Home Meds Active Scripts Ibuprofen (Ibuprofen 800 mg Tab) 800 Mg Tab, 800 MG PO Q8H PRN for fever or pain, #30 TAB 0 Refills Prov:AYANA GARCIA SALON STYLIST 07/02/24 Naproxen (Naproxen) 500 Mg Tablet, 500 MG PO BID PRN for PAIN, #30 TAB Prov:JAIRO HOFF 12/22/23 Metoclopramide HCl (Reglan) 5 Mg Tab, 5 MG PO Q6HPRN PRN for NAUSEA/VOMITING, #8 TAB Prov:SAUNDRA COTE MD 10/23/23 Clotrimazole (Clotrimazole) 1 % Cream..g., 1 IN TP BID for 7 Days, #15 G 0 Refills Prov:JERZY CASTRO MD 10/23/23 Cephalexin Monohydrate (Keflex) 500 Mg Cap, 500 MG PO TID, #30 CAP 0 Refills Prov:JERZY CASTRO MD 10/23/23 Ibuprofen (Ibuprofen) 600 Mg Tablet, 600 MG PO Q6H PRN for PAIN, #20 TAB 0 Refills Prov:TAMIKO PUENTES IN[employer]STRU[employer]URE DIRECTOR 04/19/23 Polyethylene Glycol 3350 (Miralax) 17 Gm Powd.pack, 17 GM PO DAILY, #30 DAYS Prov:BINDU BANDA MD 01/11/22 Past Medical History Past Medical History: Asthma, Diabetes-Type II, High Cholesterol, Hypothyroid, Other Medical History Other: OSTEOARTHRITIS Past Surgical History: Appendectomy, Hysterectomy Social History Social History: Negative, Lives with family Female( History) History: Not Applicable ROS Dictation Review of systems is negative. Physical Exam Extremities Comment Right ankle swollen very tender no ecchymosis or hematomas in the skin distal cap refill is normal. MDM Differential diagnosis could be a fracture a tendon avulsion a a sprain. Plain films are ordered they are negative for any fractures or dislocations in the foot or the ankles. Patient given IM Toradol for pain control ED Course Orders Procedure Category Date Status Time Ankle Comp 3vws Rt RAD 03/22/25 Resulted 20:45 Foot Comp 3+Vws Rt RAD 03/22/25 Resulted 20:45 Vital Signs Date Time Temp Pulse Resp B/P (MAP) Pulse Ox O2 Delivery O2 Flow Rate FiO2 03/22/25 20:59 97.2 90 18 134/78 98 Room Air* 0 21 03/22/25 20:33 97.2 90 16 134/78 98 Room Air DX & DISP Disposition: Discharge Departure Impression: Primary Impression: Moderate right ankle sprain Condition: Stable Additional Instructions: You have a sprain of your right ankle. There are no fractures. The best medicine for pain control would be Tylenol and ibuprofen. In the meantime elevate the foot treat it with ice. Please follow-up with your primary care doctor if the pain continues after a week. You can put weight on the foot as there are no fractures Referrals: JOCELIN SHEIKH (PCP) JOAQUÍN MELISSA MD Mar 22, 2025 22:58
[2025-03-22 23:08] VITALS: BP 120/77; PULSE 83; RESP 16; TEMP 98.2; O2SAT 99
== END 2025-03-22 23:24 | disposition home or self-care (01) ==
LOC: EDH 20:32
DX: S93.401A Sprain of unspecified ligament of right ankle, initial encounter (principal); E11.9 Type 2 diabetes mellitus without complications; E78.00 Pure hypercholesterolemia, unspecified; J45.909 Unspecified asthma, uncomplicated; M19.90 Unspecified osteoarthritis, unspecified site; Z90.49 Acquired absence of other specified parts of digestive tract; Z90.710 Acquired absence of both cervix and uterus; X50.1XXA Overexertion from prolonged static or awkward postures, initial encounter; Y93.89 Activity, other specified; Y92.89 Other specified places as the place of occurrence of the external cause; Y99.8 Other external cause status
CPT/HCPCS: 99284; 73610; 73630; 96372; J1885